=== PATIENT | female | born 1950 | race Caucasian/White ===

== ENCOUNTER 2024-08-03 19:47 | Outpatient (CLI) | payer MEDICARE | END 2024-08-03 19:48 | disposition critical access hospital (66) | LOC: EMS 19:47 | DX: M25.562 Pain in left knee (principal); S89.92XA Unspecified injury of left lower leg, initial encounter; Y93.01 Activity, walking, marching and hiking; Y92.832 Beach as the place of occurrence of the external cause; R68.83 Chills (without fever) | CPT/HCPCS: A0425; A0427 ==

== ENCOUNTER 2024-08-03 20:14 | Emergency (ER) | payer MEDICARE, OTHER ==
--- NOTE | 2024-08-03 21:30 | XRAY Report ---
PROCEDURE: Knee 3V LT INDICATIONS: left knee pain TECHNIQUE: 3 views of the knee(s) were acquired. COMPARISON: None. FINDINGS: Bones: No acute displaced fracture. Mild degenerative changes Soft tissues: There is a large joint effusion, possibly with a lipohemarthrosis. IMPRESSION: No acute displaced fracture. Mild degenerative changes. However, there is a large joint effusion with possible lipohemarthrosis concerning for nondisplaced injury. Consider cross-sectional imaging to fu rther evaluate. Reviewed by: Ben Prince MD on 08/03/2024 9:29 PM PDT Approved by: Ben Prince MD on 08/03/2024 9:29 PM PDT Station ID: [id number]
--- NOTE | 2024-08-03 21:32 | XRAY Report ---
PROCEDURE: Hip w/Pelvis 2-3V LT INDICATIONS: left hip pain after fall TECHNIQUE: 2 views of the hip were acquired. COMPARISON: No priors available for review FINDINGS: Bones: Suspected fracture deformity is seen at the left femoral neck, with surgical changes of fixat ion. There may be a lucency at the lesser trochanter. Nonacute appearing bone fragment is also seen s uperior to the hardware. No dislocation. Mild background degenerative changes. Soft tissues: Increased fecal loading IMPRESSION: Fracture deformity at the left proximal femur with surgical changes. Possible additional lucency is s een at the lesser trochanter, and bone fragment superior to the hardware. These are age-indeterminate and no prior images are available for review. Reviewed by: Ben Prince MD on 08/03/2024 9:30 PM PDT Approved by: Ben Prince MD on 08/03/2024 9:30 PM PDT Station ID: [id number]
[2024-08-03] MEDS: MORPHINE 2 MG/ML CARPUJECT IVP STA (21:34)
--- NOTE | 2024-08-03 22:06 | ED Physician Documentation ---
History of Present Illness - Stated complaint Stated Complaint: LEFT KNEE PAIN S/P FALL - Chief complaint Chief Complaint: Ext Problem - Additonal information Additional information: Patient is a 74-year-old female who no history of blood thinners did not hit her head or lose consciousness [place] patient felt on her left knee after tripping. She had severe knee pain. Patient has previous history of fracture to left hip in February. Patient received 200 mg of f[address]anyl on way to the ER via [facility] PAST MEDICAL HISTORY - Past Medical History Past Medical History: Yes Cardiovascular: Hypertension - Past Surgical History Past Surgical History: No - Present Medications Home Medications: Ambulatory Orders Medication Instructions Recorded Confirmed HYDROcod/ACETAM 5/325 [Dougherty 5/325] 1 - 2 tab PO Q6H PRN #15 tablet 08/03/24 - Allergies Allergies/Adverse Reactions: Allergies Allergy/AdvReac Type Severity Reaction Status Date / Time No Known Drug Allergies Allergy Verified 08/03/24 20:19 - Social History Does the pt smoke?: No Smoking Status: Never smoker Does the pt drink ETOH?: No Does the pt have substance abuse?: No - Immunizations Immunizations are current?: Yes - POLST Patient has POLST: No PD ED PE NORMAL - Vitals Vital signs reviewed: Yes - General General: Alert and oriented X 3 - HEENT HEENT: Atraumatic - Neck Neck: Supple, no meningeal sign, C-Spine cleared by NEXUS criteria - Cardiac Cardiac: RRR, No murmur, No gallop, No rub - Respiratory Respiratory: No respiratory distress, Clear bilaterally - Derm Derm: Normal color, Warm and dry - Free text exam Free text exam: Reproducible tenderness to anterior knee with mild swelling. No lower leg swelling compartments are soft on palpation. Reproducible posterior left knee tenderness however DP and PT pulses intact extremities are warm to touch otherwi se. Additionally reproducible left hip pain on palpation with decreased range of motion left hip and left knee on examination. Results - Vitals Vitals: Vital Signs - 24 hr 08/03/24 20:20 Temperature 36.8 C Heart Rate 81 Respiratory 16 Rate Blood Pressure 160/77 H O2 Saturation 100 Oxygen O2 Source Room air PD Medical Decision Making - ED course Complexity details: reviewed results ED course: Patient is a 74-year-old female presenting to the emergency department left knee pain after a fall. Patient recent fracture to left hip back in February. She notes she was using [place] the beach when she tripped and fell. Patient has severe knee pain brought in by EMS. Patient was given 200 fentanyl prior to arrival. Vital stable on arrival otherwise. Pulses intact to bilateral lower extremities intact reproducible anterior knee pain significant tenderness on examination with reproducible posterior knee tenderness noted. Additionally patient has palpable reproducible left hip tenderness with decreased range of motion at left knee and left hip secondary to pain. Fracture deformity at the left proximal femur with surgical changes. Possible additional lucency is seen at the lesser trochanter, and bone fragment superior to the hardware. These are age-indeterminate and no prior images are available for review. CT left knee: No acute displaced fracture. Mild degenerative changes. However, there is a large joint effusion with possible lipohemarthrosis concerning for nondisplaced injury. Consider cross-sectional imaging to further evaluate. Discussed case with Dr. Ortiz he notes patient is safe for discharge home she should remain nonweightbearing and should have a range of motion brace here in emergency department with pain control at home. Patient will follow-up with her orthopedic doctor in the outpatient setting that she saw for her left hip fracture. Pain under control here in the emergency department with morphine and small dose of Ativan given her persistent anxiety. Patient is from [place] and she had difficulty getting home as her cannot drive at night and she is currently housesitting. Will evaluate with EMS/firefighters for further follow- up. Departure - Departure Clinical Impression: Fracture of left tibial plateau, Pain in extremity, Swelling of left knee joint Condition: Fair Prescriptions: HYDROcod/ACETAM 5/325 [Dougherty 5/325] 1 - 2 tab PO Q6H PRN #15 tablet PRN Reason: Pain Comments: You were seen here in the emergency department for your left knee pain you did sustain a fracture to the tibia plateau. I have discussed with the orthopedic physician he will see you in the outpatient setting in 3 weeks if you wish to follow-up with him or you can follow-up with your previous surgeon who recently fixed your hip back in February. You need to be in a knee brace that allows you for range of motion that we have given you here. You should use crutches and remain off of it.Follow-up with orthopedics either with Dr. Ortiz was given the phone number for your with your previous orthopedic who saw you for your left hip. I am prescribing a short course of narcotic pain medication for you. These are potentially dangerous and addictive medications that should be used carefully. These medications may constipate you. Take an jpqn-gph-dcllmzo stool softener (docusate) twice daily with plenty of water while taking these medications. If you go 24 hours without a bowel movement, take xnyk-icm-cfznihe miralax, per package instructions. Do not drink or drive while taking these medications. If you received narcotic or sedating medications while in the emergency department, do not drive for 24 hours. Store this medication in a safe, secure place and out of reach of children. It is a violation of federal law to give or sell this medication to another person or to use in a manner other than prescribed. The ED will not refill narcotic prescriptions, including prescriptions lost or stolen. To dispose of unwanted medications: 1. [facility] provides a drop box for medication in pill form only (no liquids) 8:00 am to 4:30 p.m. Wednesday-Wednesday in the lobby of the [facility], [address] [place] [address]. Empty pills into ziplock bag before disposal. Call [phone] for information. 2.[employer] is a free service available to all [facility] residents. Go to [email or web address] Note that many narcotic pain relievers also contain Tylenol/acetaminophen. Please ensure that your total dose of acetaminophen from all sources does not ex ceed 3 g (3000 mg) per day. Forms: PCP List
[2024-08-03] MEDS: LORazepam 0.5 MG TABLET PO STA (22:32)
--- NOTE | 2024-08-03 22:42 | CT Report ---
PROCEDURE: Lower Extremity LT WO INDICATIONS: please evaluate for fracture of left knee TECHNIQUE: Noncontrast 3-mm axial sections acquired from the distal tibial shaft to the talar dome, with coronal and sagittal reformats. For radiation dose reduction, the following was used: automated exposure c ontrol, adjustment of mA and/or kV according to patient size. COMPARISON: Left knee, left hip, and pelvis x-rays from 08/03/2024 FINDINGS: Image quality: Excellent. Bones: Severe osseous demineralization. Acute, minimally displaced fracture of the posterior-lateral tibial plateau extending anteriorly toward the lateral compartment articular surface (-; ). No significant articular surface depression. Joints: Moderate lipohemarthrosis. Mild tricompartmental osteoarthritis. Muscles: Overall muscle bulk is preserved. Tendons: Quadriceps and patellar tendon contours are preserved. Vessels: No aneurysmal dilatation of the popliteal vessels. Lymph nodes: No popliteal lymphadenopathy. Other soft tissues:Mild prepatellar and infrapatellar subcutaneous edema. Impression: Acute, minimally displaced posterior-lateral tibial plateau Schatzker type I fracture with moderate l ipohemarthrosis. No significant articular surface depression. Reviewed by: Michoacano Crandall MD on 08/03/2024 10:41 PM PDT Approved by: Michoacano Crandall MD on 08/03/2024 10:41 PM PDT Station ID: [email or web address]
[2024-08-04] MEDS: MORPHINE 2 MG/ML CARPUJECT IVP STA (05:36)
[2024-08-04] MEDS: HYDROcod/ACETAM 5/325 MG TABLET PO STA ×2 (05:46→10:50)
--- NOTE | 2024-08-04 08:25 | ED Physician Documentation ---
ED Addendum - Addendum Addendum: 08/04/24 08:18 I received signout/turnover of care on this patient from HIRA Groves; please see her note for complete H&P. In brief, patient had a trip/fall [employer], resulting in sudden onset of severe left knee pain. Patient has been unable to bear any weight on the left lower extremity since this injury. BIBA. Testing prior to turnover of care reveals left tibial plateau fracture. HIRA Groves reviewed the results with the on-call orthopedic surgeon (Dr. Ortiz), and plan is to discharge home with outpatient follow-up. Patient was held in the ED overnight throughout my shift. The reason for the delay in discharge is that she is visiting [facility] from [place]. 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 The patient tells me that her will likely arrive to this emergency department later this morning; she says that her has to wait for their son to drive the to [facility]. At one point, the possibility of discharge by ambulance was entertained and I discussed this with the patient; it was at that point that, in the course of my discussion with the patient, I realized that the patient would be discharged to this two-story house alone. Thus, she is held in ED overnight and care of patient is turned over to oncoming ED physician (Dr. Chen).
--- NOTE | 2024-08-04 10:42 | ED Physician Documentation ---
ED Addendum - Addendum Addendum: 08/04/24 10:40 The patient has been here in the ER waiting for family to come from the [facility] and be able to help her with her knee pain and getting around. Findings on her knee CT was very minimal corner fracture of the tibial plateau. There is no depression in the central portion and it does not appear to involve the central portion. Prior ED assessment was a nonsurgical lesion which on my eye seems reasonable. They can still be other internal injuries such as meniscal. She had been given a knee brace and crutches and prescriptions for medications. The patient's family reportedly is arriving soon. The patient did ask for some more pain medicine. I gave her some oral naproxen and hydrocodone. Disposition: The patient discharged home in stable condition. Diagnoses: 1. Accidental fall 2. Minimal lateral tibial plateau fracture, nondisplaced 3. Knee pain 4. Potential meniscal injury
[2024-08-04] MEDS: NAPROXEN 250 MG TABLET PO STA (10:53)
[2024-08-04 11:30] VITALS: BP 128/73; O2SAT 97
== END 2024-08-04 11:55 | disposition home or self-care (01) ==
LOC: ED 20:14
DX: S82.142A Displaced bicondylar fracture of left tibia, initial encounter for closed fracture (principal); W01.0XXA Fall on same level from slipping, tripping and stumbling without subsequent striking against object, initial encounter; Y93.01 Activity, walking, marching and hiking; Y92.832 Beach as the place of occurrence of the external cause; F41.9 Anxiety disorder, unspecified; Z76.4 Other boarder to healthcare facility
CPT/HCPCS: 73502; 73562; 73700; 96374; 99284; A9270